=== PATIENT | female | born 1955 | race Caucasian/White ===

== ENCOUNTER 2018-01-08 13:49 | Outpatient (CLI) | payer BC | END 2018-01-08 13:50 | disposition home or self-care (01) | LOC: BICRAD 13:49 | PROVIDERS: ATTEND Family Medicine | DX: J20.9 Acute bronchitis, unspecified (principal) | CPT/HCPCS: 71046 ==

== ENCOUNTER 2018-07-17 14:50 | Outpatient (CLI) | payer BC | END 2018-07-17 14:51 | disposition home or self-care (01) | LOC: BICRAD 14:50 | PROVIDERS: ATTEND Family Medicine | DX: R05 Cough (principal) | CPT/HCPCS: 71046 ==

== ENCOUNTER 2019-05-13 09:05 | Outpatient (CLI) | payer BC ==
--- NOTE | 2019-05-13 11:53 | ULT ---
COMPLETE ABDOMEN ULTRASOUND: Date: 05/13/19 INDICATION: History of abdominal pain. COMPARISON: None. TECHNIQUE: Dee scale, color Doppler, and spectral Doppler images were obtained of the abdomen. FINDINGS: There is appropriate flow within the IVC and visualized aorta. There is diffuse increased echogenicity of the liver consistent with fatty infiltration. There is a 3 .7 cm cyst within the posterior right hepatic lobe. Visualized aspects of the pancreas are unremarkable. The gallbladder demonstrated a small amount of sludge. No sonographic Taylor's sign is reported. Comm on bile duct measures 5 mm. The spleen measures 12.9 cm. The right kidney measures 10.3 x 4.3 x 5.0 cm. The left kidney measures 10.5 x 5.6 x 5.0 cm. There is a small, shadowing echogenicity involving the mid left kidney which may reflect accentuated renal ca lix or a nonobstructing renal calculus. No free fluid is evident. IMPRESSION: 1. Fatty infiltration of the liver. 2. Right hepatic lobe cyst. 3. Debris seen within the gallbladder suspicious for sludge. No definite sonographic evidence of acu te cholecystitis. 4. Small echogenicity involving the left mid kidney may reflect small, nonobstructing calculus. No h ydronephrosis is demonstrated. POS: [facility]
== END 2019-05-13 09:06 | disposition home or self-care (01) ==
LOC: BICULT 09:05
PROVIDERS: ATTEND Family Medicine
DX: R10.84 Generalized abdominal pain (principal); K76.89 Other specified diseases of liver; R93.422 Abnormal radiologic findings on diagnostic imaging of left kidney
CPT/HCPCS: 76700

== ENCOUNTER 2019-07-26 12:20 | Outpatient (CLI) | payer BC ==
--- NOTE | 2019-07-26 16:26 | NM ---
HEPATOBILIARY SCAN: 07/26/19 INDICATIONS: Right upper quadrant pain. The patient was given 5.5 millicuries of technetium labeled Mebrofenin. FINDINGS: Initial images show normal liver activity. The gallbladder begins to visualize by four minutes. Bile duct activity is confirmed. Intestinal activity is confirmed. CCK injection was given. Gallbladder ejection fraction recorded at 61%. IMPRESSION: 1. Normal visualization of the gallbladder. 2. Normal gallbladder ejection fraction. POS: [facility]
== END 2019-07-26 12:21 | disposition home or self-care (01) ==
LOC: NM 12:20
PROVIDERS: ATTEND Internal Medicine Gastroenterology
DX: R10.11 Right upper quadrant pain (principal)
CPT/HCPCS: 78227; A9537

== ENCOUNTER 2019-10-17 13:21 | Outpatient (CLI) | payer BC ==
--- NOTE | 2019-10-17 13:43 | RAD ---
PA AND LATERAL VIEWS OF THE CHEST: HISTORY: Acute bronchitis, cough. FINDINGS: The cardiomediastinum is normal. The lungs are expanded and clear. The bony thorax is normal. IMPRESSION: Normal exam. POS: [facility]
== END 2019-10-17 13:22 | disposition home or self-care (01) ==
LOC: BICRAD 13:21
PROVIDERS: ATTEND Family Medicine
DX: J20.9 Acute bronchitis, unspecified (principal)
CPT/HCPCS: 71046

== ENCOUNTER 2020-01-27 13:20 | Outpatient (CLI) | payer BC ==
--- NOTE | 2020-01-27 13:48 | MMO ---
Bilateral MAMMO Bilat Screen [facility]. CLINICAL HISTORY: Patient is 65 years old and is seen for screening. The patient has the following family history of breast cancer: sister, at age 43. The patient has no personal history of cancer. VIEWS: The views performed were: bilateral craniocaudal with tomosynthesis and bilateral mediolateral oblique with tomosynthesis. FILMS COMPARED: The present examination has been compared to prior imaging studies performed at [facility] on 10/24/2012, and at [facility] on 07/11/2014. This study has been interpreted with the assistance of computer-aided detection. MAMMOGRAM FINDINGS: There are scattered fibroglandular densities. There are vascular calcifications seen in both breasts. There are no suspicious masses, suspicious calcifications, or new areas of architectural distortion. IMPRESSION: A ROUTINE FOLLOW-UP MAMMOGRAM IN 1 YEAR IS RECOMMENDED. THE RESULTS OF THIS EXAM WERE SENT TO THE PATIENT. ACR BI-RADS Category 2 - Benign finding MAMMOGRAPHY NOTE: 1. A negative mammogram report should not delay a biopsy if a dominant of clinically suspicious mass is present. 2. Approximately 10% to 15% of breast cancers are not detected by mammography. 3. Adenosis and dense breasts may obscure an underlying neoplasm. Reported by: MARIANO LARKIN MD Electonically Signed: [id number]
== END 2020-01-27 13:21 | disposition home or self-care (01) ==
LOC: BICMAMMO 13:20
PROVIDERS: ATTEND Family Medicine
DX: Z12.31 Encounter for screening mammogram for malignant neoplasm of breast (principal); Z80.3 Family history of malignant neoplasm of breast
CPT/HCPCS: 77063; 77067

== ENCOUNTER 2022-06-17 16:02 | Emergency (ER) | payer MEDICARE, BC ==
[2022-06-17 17:47] LABS: #Eosinphils 0.1 thou/uL (0.0-0.7); #Lymphocytes 2.4 thou/uL (1.20-3.40); #Monocytes 0.9 thou/uL (0.11-0.59); #Neutrophils 6.8 thou/uL (1.40-6.50); %Basophils 0.4 % (0.0-1.0); %Eosinophils 0.8 % (0.0-10.0); %Lymphocytes 23.7 % (21.0-51.0); %Neutrophils 66.1 % (42.0-75.0); Hemoglobin 15.2 g/dL (12.0-16.0); Mean Corpuscular HGB CONC 33.4 g/dL (32.0-36.0); Mean Corpuscular Volume 89.6 fL (78.0-98.0); Mean Platelet Volume 7.8 fL (7.4-10.4); Platelet Count 309 thou/uL (130-400); RBC Distribution Width 12.8 % (11.5-14.5); Red Blood Cell (RBC) Count 5.09 mill/uL (4.20-5.40); White Blood Cell (WBC) Count 10.3 thou/uL (4.8-10.8)
[2022-06-17 18:09] LABS: ALT (SGPT) 15 U/L (8-55); AST (SGOT) 12 U/L (5-34); Albumin 4.6 g/dL (3.4-4.8); Alkaline Phosphatase 153 U/L (40-110); Anion Gap 13 mmol/L (10-20); BUN (Urea Nitrogen) 12 mg/dL (9.8-20.1); Bilirubin, Total 1.5 mg/dL (0.2-1.2); Calc. Creatinine Clearance 0 mL/min (70-130); Calcium 9.9 mg/dL (7.8-10.44); Carbon Dioxide 24 mmol/L (23-31); Chloride 103 mmol/L (98-107); Estimated GFR 70; Globulin 2.6 g/dL (2.4-3.5); Glucose 97 mg/dL (80-115); Protein, Total 7.2 g/dL (5.8-8.1); Sodium 136 mmol/L (136-145)
[2022-06-17 19:08] LABS: Bilirubin Negative (Negative); Blood, Urine Negative (Negative); Clarity Clear (Clear); Glucose, Urine (Dipstick) Normal (Negative); Ketone, Urine Negative (Negative); Leukocyte Negative Leu/uL (Negative); Nitrite Negative (Negative); Protein, Urine (Dipstick) Negative (Neg-Trace); Urobilinogen Normal mg/dL (Less than 2)
== END 2022-06-17 21:01 | disposition home or self-care (01) ==
LOC: ERS 16:02
DX: U07.1 COVID-19 (principal); E03.9 Hypothyroidism, unspecified; E78.5 Hyperlipidemia, unspecified; I10 Essential (primary) hypertension; Z79.899 Other long term (current) drug therapy
CPT/HCPCS: 71045; 80053; 81003; 85025; 93005; 94640; 96360; 99285; U0003; U0005

== ENCOUNTER 2023-06-29 13:24 | Outpatient (CLI) | payer BC, MEDICARE ==
[2023-06-29 14:30] LABS: #Basophils 0.1 10x3/uL (0.0-0.2); #Eosinphils 0.3 10x3/uL (0.0-0.5); #Monocytes 0.5 10x3/uL (0.0-1.1); #Neutrophils 3.7 10x3/uL (1.5-8.4); %Basophils 0.9 % (0.0-2.0); %Neutrophils 56.9 % (40.0-75.0); Hematocrit 40.3 % (34.9-44.5); Hemoglobin 13.6 g/dL (12.0-15.5); Mean Corpuscular HGB CONC 33.7 g/dL (32.0-36.0); Mean Corpuscular Hemoglobin 29.5 pg (27.0-33.0); Mean Corpuscular Volume 87.4 fl (81.6-98.3); Mean Platelet Volume 10.5 fl (7.4-10.4); Platelet Count 334 10x3/uL (150-450); RBC Distribution Width 12.9 % (11.5-14.5); Red Blood Cell (RBC) Count 4.61 10x6/uL (3.90-5.03); White Blood Cell (WBC) Count 6.5 10x3/uL (3.5-10.5)
[2023-06-29 15:00] LABS: Anion Gap 16 mmol/L (10-20); BUN (Urea Nitrogen) 15 mg/dL (9.8-20.1); Calc. Creatinine Clearance 0 mL/min (70-130); Calcium 9.4 mg/dL (7.8-10.44); Carbon Dioxide 25 mmol/L (23-31); Chloride 104 mmol/L (98-107); Estimated GFR 51; Glucose 83 mg/dL (80-115); Potassium 3.8 mmol/L (3.5-5.1); Sodium 141 mmol/L (136-145)
== END 2023-06-29 13:25 | disposition home or self-care (01) ==
LOC: LABBT 13:24
PROVIDERS: ATTEND Orthopaedic Surgery Hand Surgery
DX: Z01.818 Encounter for other preprocedural examination (principal); M65.341 Trigger finger, right ring finger
CPT/HCPCS: 80048; 85025; 93005; 93010

== ENCOUNTER 2023-07-04 05:59 | Day surgery (SDC) | payer BC, MEDICARE ==
[2023-06-29 14:13] VITALS: BMI 32.8
[2023-07-04] MEDS ORDERED: Bacitracin Zinc Ointment 30 gm TUBE ONE (07:12)
[2023-07-04] MEDS ORDERED: Bupivacaine PF 0.5% 30 ML VIAL ONE (07:12)
[2023-07-04] MEDS ORDERED: CEFAZOLIN 2 GM VIAL ONE (07:30)
[2023-07-04] MEDS ORDERED: Sodium Chloride 0.9% 100 ML ONE (07:30)
[2023-07-04] MEDS ORDERED: Ondansetron PF 4 MG/2 ML Vial ONE (07:53)
[2023-07-04] MEDS ORDERED: Lidocaine 1% PF 5 ML VIAL ONE (07:53)
[2023-07-04] MEDS ORDERED: PROPOFOL 200 MG/20 ML VIAL ONE (07:53)
[2023-07-04] MEDS ORDERED: Ketorolac Tromethamine 30 MG/ML VIAL ONE (08:56)
== END 2023-07-04 10:10 | disposition home or self-care (01) ==
LOC: SDC 05:59
PROVIDERS: ATTEND Orthopaedic Surgery Hand Surgery
PROC: 0LN70ZZ Release Right Hand Tendon, Open Approach (ICD-10-PCS; principal; 2023-07-04)
DX: M65.341 Trigger finger, right ring finger (principal); I10 Essential (primary) hypertension; K21.9 Gastro-esophageal reflux disease without esophagitis; E03.9 Hypothyroidism, unspecified; F41.9 Anxiety disorder, unspecified; E78.5 Hyperlipidemia, unspecified; Z88.1 Allergy status to other antibiotic agents; Z88.2 Allergy status to sulfonamides; Z79.890 Hormone replacement therapy; Z79.899 Other long term (current) drug therapy
CPT/HCPCS: 36416; J1885; J2405; J2704; J3490; S0020